=== PATIENT | female | born 1985 | race Hispanic/Latino ===

== ENCOUNTER 2019-12-07 06:17 | Inpatient (IN) | payer BC ==
[~2019-12-07] VITALS: Ht 157.5 cm; Wt 100.2 kg
[2019-12-07] MEDS ORDERED: LACTATED RINGERS 1000ML 1,000 ML IV PRN ×2 (06:34→07:00)
[2019-12-07 06:57] LABS: APPEARANCE,URINE Cloudy (CLEAR); BILIRUBIN,URINE Negative (NEGATIVE); COLOR,URINE Yellow (YELLOW); GLUCOSE, URINE (UA) Negative (NEGATIVE); KETONES,URINE Negative (NEGATIVE); LEUKOCYTE ESTERASE ,URINE Trace (NEGATIVE); NITRATE,URINE Negative (NEGATIVE); OCCULT BLOOD,URINE Negative (NEGATIVE); PROTEIN,URINE Negative (NEGATIVE); UROBILINOGEN,URINE 0.2 mg/dL (0.2-1.0)
[2019-12-07 07:10] LABS: HEMATOCRIT 30.4 % (36-48); MEAN CORPUSCULAR HEMOGLOBIN 25.1 pg (27.0-33.0); MEAN CORPUSCULAR HGB CONC 32.2 g/dL (32.0-36.0); MEAN CORPUSCULAR VOLUME 77.7 fL (79-99); PLATELET COUNT (AUTO) 218 K/uL (130-400); RED BLOOD CELL COUNT(AUTO) 3.91 MIL/uL (4.00-5.50); RED CELL DISTRIBUTION WIDTH 13.9 % (11.0-15.5); WHITE BLOOD COUNT (AUTO) 12.9 K/uL (4.8-10.8)
[2019-12-07] MEDS ORDERED: CEFAZOLIN SODIUM 1 GM VIAL ONE (07:11)
[2019-12-07] MEDS ORDERED: CITRIC ACID/SODIUM CITRATE 30 ML UDCUP ONE (07:14)
[2019-12-07 07:17] LABS: RBC,URINE None Seen /HPF (0-1)
[2019-12-07 07:18] LABS: BACTERIA,URINE Rare /HPF (None Seen); SQUAMOUS EPITHELIAL CELL,UR Moderate /HPF (0-2)
[2019-12-07] MEDS ORDERED: PROPOFOL 10 MG/ML 20ML VIAL IV ONE (07:19)
[2019-12-07] MEDS ORDERED: CEFAZOLIN SODIUM 1 GM VIAL IVP ONE (07:20)
[2019-12-07] MEDS ORDERED: MIDAZOLAM HCL 1 MG/ML 2ML VIAL ONE (07:30)
[2019-12-07] MEDS ORDERED: FENTANYL CITRATE PF 50 MCG/1 ML 5ML AMP IV ONE ×2 (07:30→07:36)
[2019-12-07] MEDS ORDERED: OXYTOCIN 10 UNIT/1ML 10ML VIAL ONE (07:30)
[2019-12-07 07:34] LABS: AMPHET/METH SCREEN,URINE NEGATIVE (NEGATIVE); BARBITURATE SCREEN, URINE NEGATIVE (NEGATIVE); BENZODIAZEPINES SCREEN,URINE NEGATIVE (NEGATIVE); CANNABINOID SCREEN,URINE NEGATIVE (NEGATIVE); COCAINE SCREEN,URINE NEGATIVE (NEGATIVE); OPIATE SCREEN,URINE NEGATIVE (NEGATIVE); PHENCYCLIDINE SCREEN,URINE NEGATIVE (NEGATIVE)
[2019-12-07] MEDS ORDERED: PHENYLEPHRINE HCL 10 MG/ML 1ML VIAL IV ONE (07:48)
[2019-12-07] MEDS ORDERED: NEOSTIGMINE 5MG/5ML SYR IV ONE (07:48)
[2019-12-07] MEDS ORDERED: GLYCOPYRROLATE 1 MG/5 ML SYRINGE ONE (07:48)
[2019-12-07] MEDS ORDERED: MEPERIDINE-PF 50 MG/ML SYG ONE ×2 (08:01→23:28)
[2019-12-07] MEDS ORDERED: CALDOLOR 800MG+NS 250ML 250 ML IV ONE ×2 (08:13→15:35)
[2019-12-07] MEDS ORDERED: OXYTOCIN-LR 20 UNITS/1000 ML 1,000 ML IV ONE (08:14)
[2019-12-07 08:35] LABS: BASOPHILS % (AUTO) 0.4 % (0.0-5.0); EOSINOPHILS % (AUTO) 0.3 % (0.0-8.0); LYMPHOCYTES % (AUTO) 7.8 % (21.0-51.0); MONOCYTES % (AUTO) 5.7 % (3.0-13.0); NEUTROPHILS % (AUTO) 85.5 % (40.0-77.0)
[2019-12-07 08:59] LABS: CREATININE 0.6 mg/dL (0.5-1.5); POTASSIUM 3.5 mmol/L (3.5-5.1)
[2019-12-07 09:06] LABS: ALBUMIN 2.2 g/dL (3.5-5.0); BILIRUBIN,DIRECT 0.2 mg/dL (0.0-0.3); BILIRUBIN,TOTAL 0.4 mg/dL (0.2-1.0); CRP QUANTITATIVE 35.7 mg/L (0.00-9.0); TOTAL PROTEIN, SERUM 5.8 g/dL (6.0-8.3)
[2019-12-07] MEDS ORDERED: MEPERIDINE-PF 75 MG/ML SYG IM PRN (11:15)
[2019-12-07] MEDS ORDERED: OXYTOCIN-LR 20 UNITS/1000 ML 1,000 ML IV PRN (11:15)
[2019-12-07] MEDS ORDERED: SODIUM CHLORIDE 0.9% 10 ML VIAL IVP PRN (11:15)
[2019-12-07] MEDS ORDERED: DEXTROSE 5 %-0.45 % NACL 1,000 ML IV PRN (11:15)
[2019-12-07] MEDS ORDERED: PROMETHAZINE HCL 25 MG/ML 1ML AMPULE IM PRN (11:15)
[2019-12-07] MEDS ORDERED: ALBUMIN (HUMAN) 5% 250 ML IV ONE (11:32)
[2019-12-07] MEDS ORDERED: ALBUMIN (HUMAN) 5% 250 ML IV SCH (12:35)
[2019-12-07] MEDS: CALDOLOR 800MG+NS 250ML 250 ML IV SCH ×2 (15:41→23:38)
[2019-12-07 19:30] VITALS: BP 108/61
[2019-12-07] MEDS ORDERED: PREN1TAB80 PO (20:29)
[2019-12-07] MEDS ORDERED: levothyroxine PO (20:29)
--- NOTE | 2019-12-07 22:16 | NUR ---
comfort Repositioned and assisted with pillows behind back. Patient stated no pain medication needed at this time. Notified will come back at 2330 with medication.
[2019-12-07] MEDS ORDERED: MEPERIDINE-PF 25 MG/ML SYG ONE (23:28)
--- NOTE | 2019-12-07 23:30 | NUR ---
comfort Patient states feeling pain states pain scale of 6. Demerol 75mg IM given. Patient refuses Phenergan 25mg. Pericare given.
[2019-12-08] VITALS (7 sets, daily range): BP systolic 100–117; BP diastolic 56–66
--- NOTE | 2019-12-08 08:05 | NUR ---
SW spoke to pt's nurse Noemi, since pt is under precautions for COVID 19. Per nurse,Pt is doing as well as can be expected. home has already picked up baby and family has made arrangements. Pt had C Section and will remain here till tomorrow. Pt has been given resources for counseling services. Nurse providing emotional support. Nurse to notify if SW needed.
[2019-12-08 09:06] LABS: MEAN CORPUSCULAR HEMOGLOBIN 24.4 pg (27.0-33.0); MEAN CORPUSCULAR HGB CONC 31.3 g/dL (32.0-36.0); PLATELET COUNT (AUTO) 223 K/uL (130-400); RED BLOOD CELL COUNT(AUTO) 2.95 MIL/uL (4.00-5.50); RED CELL DISTRIBUTION WIDTH 14.3 % (11.0-15.5); WHITE BLOOD COUNT (AUTO) 14.9 K/uL (4.8-10.8)
[2019-12-08] MEDS ORDERED: BISACODYL 10 MG SUPP.RECT RC PRN (09:45)
[2019-12-08] MEDS ORDERED: ACETAMINOPHEN-CODEINE 300/30MG TAB PO PRN (09:45)
[2019-12-08] MEDS ORDERED: HYDROCODONE/ACETAMINOPHEN 5/325 MG TAB PO PRN (09:45)
[2019-12-08] MEDS ORDERED: ACETAMINOPHEN EXTRA STRENGTH 500 MG TABLET PO PRN (09:45)
--- NOTE | 2019-12-08 12:15 | NUR ---
BATHROOM UP TO BATHROOM, STEADY GAIT OBSERVED. VOIDED 200CC URINE. PERICARE GIVEN, MESH PANTIES PLACED. ASSISTED BACK TO BED WITH LUNCH TRAY. PT STATES SHE THINKS SHE SHOULD STAY ONE ADDITIONAL DAY. WILL INFORM DR MUNGUIA OF PT REQUEST.
[2019-12-08] MEDS: SIMETHICONE 80 MG TAB.CHEW PO PRN ×2 (12:30→17:53)
--- NOTE | 2019-12-08 14:30 | NUR ---
ASSESSMENT: RECEIVED RESTING IN BED, QUIET. EXPLAINED POC AND UNDERSTANDING VERBALIZED, CALL OCONNELL AT HER SIDE. IV OF LR INF WELL TO LEFT HAND AND SALINE LOCK TO RIGHT HAND INTACT. FUNDUS FIRM, LOCHIA SC RUBRA. ABD TRANSVERSE INCISION WITH HIDDEN STITCH D&I. ABD BINDER ADJUSTED. ASSISSTED TO AMBULATE IN THE ROOM. 1500 SALINE LOCKED LEFT HAND AND FLUSHED WITH NS. FLUSHES WELL..
--- NOTE | 2019-12-08 15:20 | NUR ---
TRANSFER: AMBULATED TO ROOM 114, UP IN CHAIR, EXPLAINED POC AND UNDERSTANDING VERBALIZED. CALL OCONNELL AT HER SIDE. DRINKING H2O.
--- NOTE | 2019-12-08 15:49 | NUR ---
ELIMINATION: VOIDED LG AMTS URINE. INSTRUCTED ON DYAN CARE AND RETURNED DEMONSTRATION.
[2019-12-08] MEDS: FERROUS SULFATE 325 MG TABLET.DR PO SCH ×2 (17:53→20:34)
[2019-12-08] MEDS: IBUPROFEN 600 MG TABLET PO PRN (17:54)
--- NOTE | 2019-12-08 19:41 | NUR ---
REPORT: REPORT GIVEN TO Perla GRANADOS RN.
[2019-12-08] MEDS: DOCUSATE SODIUM 100 MG CAP PO SCH (20:43)
[2019-12-09] MEDS: IBUPROFEN 600 MG TABLET PO PRN ×2 (00:36→08:17)
[2019-12-09 04:00] VITALS: BP 97/54
[2019-12-09 06:44] VITALS: BP 107/58
[2019-12-09 08:10] LABS: HEPATITIS Bs ANTIGEN SCREEN P Negative (Negative)
[2019-12-09] MEDS: DOCUSATE SODIUM 100 MG CAP PO SCH (08:16)
[2019-12-09] MEDS: SIMETHICONE 80 MG TAB.CHEW PO PRN (08:16)
[2019-12-09] MEDS: FERROUS SULFATE 325 MG TABLET.DR PO SCH (08:16)
[2019-12-09 08:40] VITALS: BP 100/69
--- NOTE | 2019-12-09 11:10 | NUR ---
DISCHARGE PT LEFT UNIT VIA WHEELCHAIR, ACCOMPANIED BY SIGNIFICANT OTHER. DENIED PAIN AND HAD NO COMPLAINTS. TRANSPORTED BY PERSONAL VEHICLE.
--- NOTE | 2019-12-11 10:27 | NUR ---
INFECTION CONTROL-COVID RESULT NEGATIVE. CALLED PT TO GIVE HER RESULTS.
== END 2019-12-09 11:10 | disposition home or self-care (01) | DRG 787 ==
LOC: EDH 06:17 → OBSVTOIN 06:18 → LDH 06:18 → WSH 12-08 15:37
PROVIDERS: ADMIT Obstetrics & Gynecology; ATTEND Obstetrics & Gynecology
PROC: 10D00Z1 Extraction of Products of Conception, Low, Open Approach (ICD-10-PCS; principal; 2019-12-07 07:00)
DX: O77.0 Labor and delivery complicated by meconium in amniotic fluid (principal); O36.4XX0 Maternal care for intrauterine death, not applicable or unspecified; Z3A.39 39 weeks gestation of pregnancy; Z37.1 Single stillbirth
CPT/HCPCS: 36415; 59510; 71045; 76805; 80053; 80076; 80305; 81001; 82728; 84443; 85014; 85018; 85025; 85027; 85384; 86038; 86140; 86215; 86235; 86592; 86644; 86645; 86694; 86695; 86747; 86777; 86778; 86790; 86850; 86900; 86901; 87340; 87633; 87635; 87804; A4344; G0378; J0690; J1741; J2175; J2250; J2370; J2550; J2590; J2704; J2710; J3010; J3490; J7120; P9045